=== PATIENT | male | born 1965 | race Caucasian/White ===

== ENCOUNTER 2016-09-16 21:24 | Emergency (ER) | payer OTHER ==
[~2016-09-16] VITALS: Ht 175.3 cm; Wt 86.9 kg
[2016-09-16 21:33] VITALS: BP 136/87; PULSE 74; RESP 18; TEMP 98; O2SAT 99
--- NOTE | 2016-09-16 21:50 | PD ---
HPI Chief Complaint: ENT Complaint Time Seen by Provider: 21:40 Travel History International Travel<30 days: No Contact w/Intl Traveler<30days: No Traveled to known affect area: No History of Present Illness HPI 51-year-old male who is on vacation from [place] presents for evaluation of decreased hearing for the left ear. He is currently on vacation from [place], arrived 5 days ago by plane. For the past 4 days he's had some muffled hearing in his left ear. He reports that yesterday was at the beach in with hit him and now he has minimal hearing out of left ear. He is able to hear out of the right ear without any difficulty. He denies any pain or drainage. He has been using [id number] Debrox but symptoms persisted which prompted evaluation. He has no other complaints. [facility] Social History Alcohol Use: No Tobacco Use: No Allergies-Medications (Allergen,Severity, Reaction): Coded Allergies: Penicillin (Verified Allergy, Unknown, Hives, 09/16/16) Review of Systems General / Constitutional: No: Fever HENT: Positive: Other (positive for decreased hearing left ear), No: Sore Throat, Ear Discharge, Earache Cardiovascular: No: Chest Pain or Discomfort Physical Exam Narrative GENERAL: Well-developed well-nourished male in no acute distress SKIN: Warm and dry. HEAD: Atraumatic. Normocephalic. EYES: Pupils equal and round. No scleral icterus. No injection or drainage. ENT: No nasal bleeding or discharge. Mucous membranes pink and moist. Examination of the left ear reveals a cerumen impaction, unable to visualize tympanic membranes. There is no auricular tenderness. Examination of the right ear reveals normal tympanic membrane without erythema or fluid level. NECK: Trachea midline. No JVD. Data Data Last Documented VS Vital Signs Date Time Temp Pulse Resp B/P Pulse Ox O2 Delivery O2 Flow Rate FiO2 09/16/16 21:41 09/16/16 21:33 98.0 74 18 99 Orders Ear Irrigation (09/16/16 21:43) MDM Medical Decision Making Medical Screen Exam Complete: Yes Emergency Medical Condition: Yes Medical Record Reviewed: Yes Differential Diagnosis Cerumen impaction, ruptured tympanic membrane, eustachian tube dysfunction, serous otitis media, sensorineural hearing loss Narrative Course 51-year-old male and occasional help presents with decreased hearing from the left ear for the past 4 days, worsening yesterday after swimming in the ocean. Examination reveals a left ear cerumen impaction. Examination of the right ear reveals a normal external ear canal and a normal tympanic membrane. The left ear will be irrigated. The patient feels significant improvement after the irrigation. Repeat examination reveals an intact tympanic membrane without any evidence of rupture or infection. Stable for discharge. Diagnosis Primary Impression: Cerumen impaction Qualified Code: H61.22 - Impacted cerumen of left ear Med/Other Pt SpecificInfo: No Change to Meds Disposition: 01 DISCHARGE HOME Condition: Stable Emil Ruiz Sep 16, 2016 21:50
[2016-09-16] MEDS ORDERED: DIOV40TA PO (22:01)
[2016-09-16] MEDS ORDERED: CETI-1 (22:01)
[2016-09-16] MEDS ORDERED: SIMVPOW PO (22:01)
[2016-09-16] MEDS ORDERED: ASPI-110 PO (22:01)
[2016-09-16] MEDS ORDERED: LEXA20TA PO (22:01)
== END 2016-09-16 22:11 | disposition home or self-care (01) ==
LOC: PHEFT 21:24
DX: H61.22 Impacted cerumen, left ear (principal); Z88.0 Allergy status to penicillin
CPT/HCPCS: 99283